=== PATIENT | male | born 1970 | race Caucasian/White ===

== ENCOUNTER 2020-05-23 07:37 | Emergency (ER) | payer SELFPAY ==
[2020-05-23] MEDS ORDERED: ASPIRIN TABLET 325 MG TAB PO ONE (07:40)
--- NOTE | 2020-05-23 07:45 | ED.PDOC ---
History of Present Illness - General Chief Complaint: Chest Pain/UT Stated Complaint: chest pain Time Seen by Provider: 05/23/20 07:39 Source: patient, RN notes reviewed, Vital Signs reviewed Additional Information: This is a 49-year-old male patient, presents to the ER because of chest pain, patient said that the pain began last night, it comes and goes, had similar episode about a month ago he describes a burning/chest tightness, with numbness of both arms, one episode of vomiting, cold sweats, no chills no fever no shortness of breath. Patient is a smoker does not drink does not do any drugs. Patient has no chronic medical issues except for back pain, and has never had a stress test of never had any history of heart attacks or stroke - History of Present Illness Timing/Duration: other - since last night Severity/Quality: mild Location: substernal Chest Pain Radiation: arms Activities at Onset: none Improving Factors: nothing Worsening Factors: nothing Nitro Today/Relief: no nitro taken today Associated Symptoms: diaphoresis, nausea/vomiting, shortness of breath Allergies/Adverse Reactions: Allergies NO KNOWN ALLERGY Allergy (Verified 05/23/20 07:46) Review of Systems - Review of Systems Constitutional: States: no symptoms reported EENTM: States: no symptoms reported Respiratory: States: no symptoms reported Cardiology: States: chest pain Gastrointestinal/Abdominal: States: nausea, vomiting Genitourinary: States: no symptoms reported Musculoskeletal: States: no symptoms reported Skin: States: no symptoms reported Neurological: States: no symptoms reported Endocrine: States: no symptoms reported Hematologic/Lymphatic: States: no symptoms reported Past Medical History (General) - Patient Medical History Hx MRSA: Yes - Knee 2007 MRSA Source:: Wound Family Medical History - Family History Father Family History: Unknown Living Status: Unknown Physical Exam - Physical Exam General Appearance: Well Developed, Well Groomed, Well Hydrated, Well Nourished Eyes, Ears, Nose, Throat Exam: PERRL/EOMI, normal ENT inspection, TMs normal Neck: non-tender, full range of motion, supple, normal inspection Respiratory: chest non-tender, lungs clear, normal breath sounds, no respiratory distress, no accessory muscle use Cardiovascular/Chest: normal peripheral pulses, regular rate, rhythm, no edema, no gallop, no JVD, no murmur Peripheral Pulses: radial,right: 2+, radial,left: 2+ Gastrointestinal/Abdominal: normal bowel sounds, non tender, soft, no organomegaly, no pulsatile mass Rectal Exam: deferred Extremity: non-tender, normal inspection, no pedal edema, no calf tenderness 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 Some cold sweats, nausea and vomiting. Patient has no history of coronary disease he is a smoker and has a BMI. Discharge heart rate of [address] deviation or depressions, no acute ischemic changes found, chest x-ray did not show any evidence of way of abdominal disease aortic dissection, patient D-dimers were negative, patient troponins went positive, which suggest that this patient is suffering from a non-ST elevation UT. Patient received aspirin and nitro I ordered a dose of Lovenox at 1 mg/kg, and patient will be transferred to high-level care facility 05/23/20 08:20 Departure - Departure Clinical Impression: Non-ST elevation UT (NSTEMI) Disposition: Transfer to Hospital Departure Forms: ED Discharge - Pt. Copy, Patient Portal Self Enrollment Instructions: DI for Chest Pain Transfer to Outside Facility - Transfer Information Decision to Transfer Date: 05/23/20 Decision to Transfer Time: 08:23 Reason for Transfer: required specialist not available
[2020-05-23] MEDS: NITROGLYCERIN 0.4 MG 25 EA TAB SL ONE ×3 (07:49→08:33)
--- NOTE | 2020-05-23 08:13 | RAD ---
Study: Single Frontal Radiograph of the Chest. Indication:chest pain Comparison: None Impression: Heart size normal. Subtle atelectasis noted at the lung bases. Otherwise, lungs clear. No pleural effusion or pneumothorax. No acute osseous abnormality. Electronically signed by: Mingo Carlson MD 05/23/2020 8:11 AM [facility] [id number]
[2020-05-23] MEDS ORDERED: ENOXAPARIN SODIUM 100 MG/ML SYG SUBCU ONE (08:24)
[2020-05-23] MEDS ORDERED: ENOXAPARIN SODIUM 40 MG/0.4 ML SYG SUBCU ONE (08:24)
[2020-05-23] MEDS ORDERED: hydrALAZINE HCl 20 MG/ML VIAL IV ONE (08:44)
[2020-05-23] MEDS ORDERED: MORPHINE SULFATE INJ 10 MG/ML VIAL IV ONE ×2 (08:44→09:46)
[2020-05-23] MEDS ORDERED: ONDANSETRON INJ 4 MG/2 ML VIAL IV ONE (08:44)
[2020-05-23] MEDS ORDERED: MORPHINE SULFATE INJ 10 MG/ML VIAL ONE (08:59)
[2020-05-23] MEDS ORDERED: hydrALAZINE HCl 20 MG/ML VIAL ONE (08:59)
--- NOTE | 2020-05-23 10:49 | CT ---
EXAM DESCRIPTION: CTA Chest (accession [id number]), CTA Pelvis (accession [id number]), CTA Abdomen (accession [id number]) CLINICAL HISTORY: 49 years, Male, rule out dissection COMPARISON: None TECHNIQUE: CT angiography of the chest, abdomen and pelvis is performed with thin-section multi detector technique during rapid bolus administration of routine adult dose of nonionic iodinated IV contrast IV contrast media. Multiplanar reformatted images are reviewed along with source images and maximum intensity projection three dimensional images which were created on a separate dedicated workstation and are stored in the patient's medical record. FINDINGS: CT ANGIOGRAPHY CHEST Normal enhancement of pulmonary arteries. Normal enhancement of cardiac chambers. Normal enhancement of the aorta which is negative for aneurysm or dissection. Mild coronary arterial calcification. Heart size is normal. Lung window images show minimal patchy infiltrate in the right perihilar region with few punctate granulomas. No worrisome mass or nodule. Other areas of the lungs are clear. Coronal and sagittal reformatted CT images through the chest confirm the findings. No aortic aneurysm or dissection. 3-D images were obtained with MIP and shaded surface display techniques showing normal contour of the thoracic aorta with normal branch vessels over the aortic arch. CT ANGIOGRAPHY ABDOMEN In the upper abdomen, upper abdominal viscera are unremarkable. Normal enhancement of the kidneys, spleen, pancreas and liver. No calcified stones in the gallbladder. Normal small bowel loops. No free air or free fluid. No hydronephrosis or ureteral stone. Angiographic findings for CT abdominal angiogram include normal caliber aorta with no dissection. Normal enhancement of celiac axis, splenic and hepatic arteries, superior mesenteric artery and branches. Positive enhancement of the inferior mesenteric artery. Mild calcified plaque in the aorta and common iliac arteries. Normal enhancement of common iliac arteries with no aneurysm or dissection. CT ANGIOGRAPHY PELVIS Normal enhancement of common iliac, internal iliac and external iliac arteries without significant stenosis or aneurysm. No dissection. Mild arteriosclerotic changes. Normal bowel loops. The appendix appears normal with no surrounding inflammation. No inflammation around the terminal ileum or cecum or sigmoid colon. No free fluid in the pelvis. Normal sized prostate with normal seminal vesicles. Calcifications in the pelvis posterior to the bladder are consistent with phleboliths. No ureteral stones are identified. No stones in the bladder. No bladder wall thickening. No inguinal hernia. Normal enhancement of femoral arteries and femoral bifurcations. Bone window images are negative for pelvic fracture or lytic lesion. Degenerative changes in the SI joints and hips. 3-D images with MIP and shaded surface display techniques show normal caliber abdominal aorta. Normal enhancement of visceral branch vessels. Single renal arteries bilaterally. Normal enhancing vessels in the pelvis. IMPRESSION: Normal enhanced appearance of the thoracic and abdominal aorta with no dissection or aneurysm. This exam was performed according to our departmental dose-optimization program, which includes automated exposure control, adjustment of the mA and/or kV according to patient size and/or use of iterative reconstruction technique. Total DLP equals 1801.58 mGycm. Electronically signed by: Jack Arambula MD 05/23/2020 10:47 AM [facility]
[2020-05-23 12:03] VITALS: O2SAT 96
[2020-05-23 12:56] VITALS: BP 110/74; TEMP 98.7
== END 2020-05-23 12:35 | disposition short-term general hospital (02) ==
LOC: ER 07:37
DX: I21.4 Non-ST elevation (NSTEMI) myocardial infarction (principal); R11.2 Nausea with vomiting, unspecified; R06.02 Shortness of breath; F17.200 Nicotine dependence, unspecified, uncomplicated; Z20.822 Contact with and (suspected) exposure to COVID-19
CPT/HCPCS: 36415; 71045; 71275; 72191; 74175; 80053; 83880; 84484; 85025; 85379; 87635; 93005; J0360; J1650; J2060; J2270; J2405